=== PATIENT | female | born 1935 | race Caucasian/White ===

== ENCOUNTER 2021-05-29 08:05 | Inpatient (IN) | payer MEDICARE ==
[~2021-05-29] VITALS: Ht 154.9 cm; Wt 60.9 kg
[~2021-05-29 08:05] MED LIST: AMLO10TA80 MT; APIX5TAB PO; HYDR12.54 PO; LEVO500T89 MT; LOSA100T32 PO; METF-416 PO; METO-539 MT; SIMV-43 PO
[2021-05-29] MEDS ORDERED: ONDANSETRON HCL 4MG/2ML INJ IV STA (09:17)
[2021-05-29] MEDS ORDERED: KETOROLAC 30MG/ML VIAL IV STA (09:17)
[2021-05-29] MEDS ORDERED: SODIUM CHLORIDE 0.9% 1,000 ML IV ONE ×2 (09:30→11:15)
[2021-05-29 09:39] LABS: BASOPHILS % 0.3 % (0.0-2.0); HEMATOCRIT. 37.6 % (36.0-48.0); HEMOGLOBIN. 12.7 g/dL (12.0-16.0); LYMPHOCYTES % 13.7 % (20.0-50.0); MEAN CORPUSCULAR HEMOGLOBIN 28.8 pg (28.0-32.0); MEAN CORPUSCULAR VOLUME 85.2 fL (81.0-99.0); MEAN PLATELET VOLUME 9.5 fl (7.4-10.4); MONOCYTES % 10.7 % (2.0-8.0); NEUTROPHILS % 75.3 % (40.0-76.0); PLATELET 260 x1000/uL (130-400); RED BLOOD CELL COUNT 4.41 mill/uL (4.2-5.4); RED CELL DISTRIBUTION WIDTH 15.4 % (11.6-14.6)
[2021-05-29 09:50] LABS: CHLORIDE 95 mEq/L (98-107)
[2021-05-29 12:35] LABS: CLARITY URINE CLEAR (CLEAR); COLOR URINE YELLOW (YELLOW); KETONES URINE TRACE (NEGATIVE); LEUKOCYTE ESTERASE URINE 1+ (NEGATIVE); NITRITE URINE NEGATIVE (NEGATIVE); OCCULT BLOOD URINE 1+ (NEGATIVE); PH URINE 5.5 (4.5-8.0); PROTEIN URINE TRACE (NEGATIVE); SPECIFIC GRAVITY URINE 1.011 (1.005-1.030); UROBILINOGEN URINE 0.2 E.U./dL (0.2-1.0)
[2021-05-29] MEDS ORDERED: LEVOFLOXACIN 500MG PREMIX 100 ML IV SCH ×2 (13:00→13:15)
[2021-05-29] MEDS ORDERED: LORAZEPAM 2MG/ML CPJ IV PRN (13:00)
[2021-05-29] MEDS ORDERED: ONDANSETRON HCL 4MG/2ML INJ IV PRN (13:00)
[2021-05-29] MEDS ORDERED: GUAIFENESIN 200MG/10ML SUGAR FREE UDC PO PRN (13:00)
[2021-05-29] MEDS ORDERED: MORPHINE SULFATE 2 MG/ML CPJ (NOT FOR IM USE) IV PRN (13:00)
[2021-05-29] MEDS ORDERED: DIPHENHYDRAMINE 50MG/ML VIAL IV PRN (13:00)
[2021-05-29] MEDS ORDERED: ACETAMINOPHEN 650MG SUPP PR PRN (13:00)
[2021-05-29] MEDS ORDERED: DOCUSATE SODIUM 100MG CAPSULE PO PRN (13:00)
[2021-05-29] MEDS ORDERED: IPRATROPIUM/ALBUTEROL 0.5-3(2.5)MG/3ML NEB NEB PRN (13:00)
[2021-05-29] MEDS ORDERED: POTASSIUM CHLORIDE INJ 40 MEQ in DEXT 5% WATER 250 ML IV SCH (13:30)
[2021-05-29] MEDS: SODIUM CHLORIDE 0.9% 1,000 ML IV SCH (13:39)
[2021-05-29] MEDS: METRONIDAZOLE 500 MG PREMIX 100 ML IV SCH ×2 (14:40→23:18)
[2021-05-29] MEDS ORDERED: DEXTROSE 50% WATER 50ML SYRINGE IV PRN (15:30)
[2021-05-29] MEDS: BLOOD SUGAR DIAGNOSTIC STRIP TEST SCH ×2 (17:00→21:20)
[2021-05-29] MEDS ORDERED: IOHEXOL-300 100 ML BOTTLE ONE (17:32)
[2021-05-29 20:21] LABS: INR 1.1; PROTHROMBIN TIME 11.5 sec (9.6-11.0)
[2021-05-29 20:45] LABS: HEPATITIS B SURFACE ANTIGEN NEGATIVE
[2021-05-29] MEDS: ENOXAPARIN 60MG/0.6ML SYR SUBCUT SCH (20:50)
[2021-05-29] MEDS: INSULIN LISPRO 100 UNITS/ML SUBCUT SCH (21:00)
[2021-05-29] MEDS: PANTOPRAZOLE SODIUM 40 MG/VIAL IV SCH (23:18)
[2021-05-30 02:00] VITALS: BP 128/75
[2021-05-30] MEDS: SODIUM CHLORIDE 0.9% 1,000 ML IV SCH ×2 (02:40→14:37)
[2021-05-30] MEDS: METRONIDAZOLE 500 MG PREMIX 100 ML IV SCH ×3 (05:07→23:54)
[2021-05-30] MEDS: BLOOD SUGAR DIAGNOSTIC STRIP TEST SCH ×4 (06:34→20:24)
[2021-05-30] MEDS: INSULIN LISPRO 100 UNITS/ML SUBCUT SCH ×4 (06:34→20:24)
[2021-05-30 08:00] VITALS: BP 151/90
[2021-05-30 08:10] LABS: HEMATOCRIT. 37.5 % (36.0-48.0); HEMOGLOBIN. 12.5 g/dL (12.0-16.0); MEAN PLATELET VOLUME 9.3 fl (7.4-10.4); PLATELET 239 x1000/uL (130-400); RED CELL DISTRIBUTION WIDTH 15.8 % (11.6-14.6)
[2021-05-30 08:16] LABS: CHLORIDE 105 mEq/L (98-107)
[2021-05-30 08:25] LABS: LDL CHOLESTEROL 31 mg/dL (5-100)
[2021-05-30 08:26] LABS: TOTAL IRON BINDING CAPACITY 378 ug/dL (250-450)
[2021-05-30 08:27] LABS: HDL CHOLESTEROL 34 mg/dL (40-59)
[2021-05-30 08:29] LABS: T4 FREE 1.27 ng/dL (0.76-1.46)
[2021-05-30 08:37] LABS: FOLIC ACID (FOLATE) SERUM >20 ng/mL ng/mL (>5.38)
[2021-05-30 08:44] LABS: FERRITIN 46 ng/mL (10-291)
[2021-05-30 08:48] LABS: VITAMIN B12 SERUM 265 pg/mL (211-911)
[2021-05-30] MEDS: LEVOFLOXACIN 250MG PREMIX 50 ML IV SCH (11:13)
[2021-05-30 12:00] VITALS: BP 137/80
[2021-05-30] MEDS ORDERED: POTASSIUM CHLORIDE 20MEQ TABLET SR PO SCH (14:15)
[2021-05-30] MEDS: DILTIAZEM HCL 30MG TABLET PO SCH ×2 (14:36→21:55)
[2021-05-30] MEDS ORDERED: NALOXONE HCL 0.4MG/ML VIAL IV PRN (15:30)
[2021-05-30 16:00] VITALS: BP_SYST 125; BP_SYST 134; BP_DIAS 72
[2021-05-30] MEDS: ENOXAPARIN 60MG/0.6ML SYR SUBCUT SCH (16:20)
[2021-05-30 20:00] VITALS: BP 115/85
[2021-05-30] MEDS: PANTOPRAZOLE SODIUM 40 MG/VIAL IV SCH (20:24)
[2021-05-30] MEDS: ACETAMINOPHEN 325MG TABLET PO PRN (20:36)
[2021-05-30] MEDS: IRON SUCROSE COMPLEX 100 MG/5 ML ML IV SCH (21:55)
[2021-05-31] VITALS: BP 125/79
[2021-05-31 03:37] VITALS: BP 133/73
[2021-05-31] MEDS: SODIUM CHLORIDE 0.9% 1,000 ML IV SCH (04:17)
[2021-05-31] MEDS: METRONIDAZOLE 500 MG PREMIX 100 ML IV SCH (06:09)
[2021-05-31] MEDS: DILTIAZEM HCL 30MG TABLET PO SCH ×3 (06:09→21:44)
[2021-05-31 06:18] LABS: BASOPHILS % 0.3 % (0.0-2.0); HEMATOCRIT. 39.2 % (36.0-48.0); LYMPHOCYTES % 21.7 % (20.0-50.0); MEAN CORPUSCULAR HEMOGLOBIN 28.9 pg (28.0-32.0); MEAN CORPUSCULAR VOLUME 87.4 fL (81.0-99.0); MEAN PLATELET VOLUME 9.2 fl (7.4-10.4); MONOCYTES % 13.5 % (2.0-8.0); NEUTROPHILS % 64.5 % (40.0-76.0); PLATELET 221 x1000/uL (130-400); RED BLOOD CELL COUNT 4.49 mill/uL (4.2-5.4); RED CELL DISTRIBUTION WIDTH 15.7 % (11.6-14.6)
[2021-05-31] MEDS: ONDANSETRON HCL 4MG/2ML INJ IV PRN (06:18)
[2021-05-31 07:25] LABS: CHLORIDE 102 mEq/L (98-107)
[2021-05-31 08:00] VITALS: BP 127/72
[2021-05-31] MEDS: BLOOD SUGAR DIAGNOSTIC STRIP TEST SCH ×4 (08:03→20:38)
[2021-05-31] MEDS: INSULIN LISPRO 100 UNITS/ML SUBCUT SCH ×4 (08:13→20:31)
[2021-05-31 09:14] LABS: PLATELET ESTIMATE NORMAL
[2021-05-31] MEDS: LEVOFLOXACIN 250MG PREMIX 50 ML IV SCH (11:15)
[2021-05-31 12:00] VITALS: BP 141/81
[2021-05-31] MEDS: METRONIDAZOLE 500MG TABLET PO SCH ×2 (14:27→21:43)
[2021-05-31 16:00] VITALS: BP 123/69
[2021-05-31] MEDS: ENOXAPARIN 60MG/0.6ML SYR SUBCUT SCH (16:34)
[2021-05-31 20:00] VITALS: BP 171/75
[2021-05-31] MEDS: PANTOPRAZOLE SODIUM 40 MG/VIAL IV SCH (20:30)
[2021-05-31] MEDS: ACETAMINOPHEN 325MG TABLET PO PRN (20:30)
[2021-05-31] MEDS: IRON SUCROSE COMPLEX 100 MG/5 ML ML IV SCH (20:30)
[2021-06-01] VITALS (7 sets, daily range): BP systolic 110–144; BP diastolic 64–80
[2021-06-01] MEDS: METRONIDAZOLE 500MG TABLET PO SCH ×3 (06:01→21:02)
[2021-06-01] MEDS: DILTIAZEM HCL 30MG TABLET PO SCH ×3 (06:01→21:03)
[2021-06-01] MEDS: BLOOD SUGAR DIAGNOSTIC STRIP TEST SCH ×4 (07:51→21:00)
[2021-06-01] MEDS: INSULIN LISPRO 100 UNITS/ML SUBCUT SCH ×4 (07:52→21:00)
[2021-06-01] MEDS: LEVOFLOXACIN 250MG TABLET PO SCH (11:28)
[2021-06-01] MEDS: MAGNESIUM/ALUMINUM HYDROXIDE/SIMETHICONE 30ML UDC PO PRN (16:47)
[2021-06-01] MEDS: ENOXAPARIN 60MG/0.6ML SYR SUBCUT SCH (16:54)
[2021-06-01] MEDS: IRON SUCROSE COMPLEX 100 MG/5 ML ML IV SCH (21:02)
[2021-06-01] MEDS: PANTOPRAZOLE SODIUM 40 MG/VIAL IV SCH (21:02)
[2021-06-01] MEDS: ONDANSETRON HCL 4MG/2ML INJ IV PRN (21:12)
[2021-06-02 04:00] VITALS: BP 133/86
[2021-06-02] MEDS: DILTIAZEM HCL 30MG TABLET PO SCH ×3 (05:35→21:47)
[2021-06-02] MEDS: METRONIDAZOLE 500MG TABLET PO SCH ×3 (05:35→21:48)
[2021-06-02] MEDS: BLOOD SUGAR DIAGNOSTIC STRIP TEST SCH ×4 (05:39→21:35)
[2021-06-02] MEDS: INSULIN LISPRO 100 UNITS/ML SUBCUT SCH ×4 (05:39→21:49)
[2021-06-02 08:00] VITALS: BP 129/75
[2021-06-02 10:48] LABS: BG BASE EXCESS -1.8 mmol/L (-2.0-2.0); BG CARBOXYHEMOGLOBIN 0.1 % (0.5-1.5); BG DEOXYHEMOGLOBIN 5.8 % (0.0-5.0); BG FRACTION INSPIRED OXYGEN 21; BG HCO3 ACT 20.7 mmol/L (22.0-26.0); BG METHEMOGLOBIN 0.1 % (0.0-1.5); BG OXYGEN SATURATION 94.2 % (92.0-98.5); BG PCO2 29.3 mmHg (35.0-45.0); BG PH 7.468 (7.350-7.450); BG PO2 69.3 mmHg (75.0-100.0); BG SAMPLE SITE RIGHT BRACHIAL; BG TOTAL HEMOGLOBIN 13.1 g/dL (12.0-18.0); BG VENT MODE ROOM AIR
[2021-06-02] MEDS: LEVOFLOXACIN 250MG TABLET PO SCH (11:00)
[2021-06-02 12:00] VITALS: BP 133/78
[2021-06-02] MEDS ORDERED: LEVOFLOXACIN 250MG TABLET PO SCH (13:00)
[2021-06-02 13:07] LABS: BASOPHILS % 0.2 % (0.0-2.0); HEMATOCRIT. 41.1 % (36.0-48.0); HEMOGLOBIN. 13.5 g/dL (12.0-16.0); LYMPHOCYTES % 20.4 % (20.0-50.0); MEAN CORPUSCULAR HEMOGLOBIN 28.8 pg (28.0-32.0); MEAN CORPUSCULAR VOLUME 87.8 fL (81.0-99.0); MEAN PLATELET VOLUME 9.3 fl (7.4-10.4); MONOCYTES % 9.9 % (2.0-8.0); NEUTROPHILS % 69.5 % (40.0-76.0); PLATELET 209 x1000/uL (130-400); RED BLOOD CELL COUNT 4.69 mill/uL (4.2-5.4); RED CELL DISTRIBUTION WIDTH 15.6 % (11.6-14.6)
[2021-06-02 13:20] LABS: CHLORIDE 98 mEq/L (98-107)
[2021-06-02] MEDS ORDERED: DILTIAZEM HCL 30MG TABLET PO SCH (14:00)
[2021-06-02] MEDS ORDERED: DILT30TA38 MT (14:08)
[2021-06-02] MEDS ORDERED: SIMV-43 PO (14:08)
[2021-06-02] MEDS ORDERED: LEVO250T58 MT (14:08)
[2021-06-02] MEDS ORDERED: APIX5TAB PO (14:08)
[2021-06-02] MEDS ORDERED: METF-416 PO (14:08)
[2021-06-02] MEDS ORDERED: APIX5TAB MT (15:21)
[2021-06-02 16:00] VITALS: BP 143/84
[2021-06-02] MEDS: ENOXAPARIN 60MG/0.6ML SYR SUBCUT SCH (17:34)
[2021-06-02] MEDS: MAGNESIUM/ALUMINUM HYDROXIDE/SIMETHICONE 30ML UDC PO PRN (17:40)
[2021-06-02 20:00] VITALS: BP 139/73
[2021-06-02 21:49] LABS: BASOPHILS % 0.2 % (0.0-2.0); HEMATOCRIT. 37.9 % (36.0-48.0); HEMOGLOBIN. 12.7 g/dL (12.0-16.0); LYMPHOCYTES % 17.9 % (20.0-50.0); MEAN CORPUSCULAR HEMOGLOBIN 28.7 pg (28.0-32.0); MEAN CORPUSCULAR VOLUME 85.3 fL (81.0-99.0); MONOCYTES % 11.7 % (2.0-8.0); NEUTROPHILS % 70.2 % (40.0-76.0); PLATELET 205 x1000/uL (130-400); RED BLOOD CELL COUNT 4.44 mill/uL (4.2-5.4); RED CELL DISTRIBUTION WIDTH 15.5 % (11.6-14.6)
[2021-06-02 21:56] LABS: CHLORIDE 98 mEq/L (98-107)
[2021-06-02] MEDS: PANTOPRAZOLE SODIUM 40 MG/VIAL IV SCH (22:03)
[2021-06-03 00:11] VITALS: BP 120/74
[2021-06-03] MEDS: DILTIAZEM HCL 30MG TABLET PO SCH ×4 (03:00→21:12)
[2021-06-03 04:00] VITALS: BP 130/65
[2021-06-03] MEDS: METRONIDAZOLE 500MG TABLET PO SCH (06:50)
[2021-06-03] MEDS: BLOOD SUGAR DIAGNOSTIC STRIP TEST SCH ×4 (06:51→20:15)
[2021-06-03 08:00] VITALS: BP 117/81
[2021-06-03] MEDS: INSULIN LISPRO 100 UNITS/ML SUBCUT SCH ×4 (08:10→21:15)
[2021-06-03 09:09] LABS: SACCHAROMYCES CEREVISIAE IGG <20.0 Units (0.0-24.9); SACCHAROMYCES CEREVISIAE IGM <20.0 Units (0.0-24.9)
[2021-06-03] MEDS: ONDANSETRON HCL 4MG/2ML INJ IV PRN (09:56)
[2021-06-03 12:00] VITALS: BP 152/77
[2021-06-03 13:06] LABS: ATYPICAL pANCA <1:20 titer (Neg:<1:20)
[2021-06-03 16:00] VITALS: BP 128/78
[2021-06-03] MEDS: ENOXAPARIN 60MG/0.6ML SYR SUBCUT SCH (16:30)
[2021-06-03 20:00] VITALS: BP 121/61
[2021-06-03] MEDS: PANTOPRAZOLE SODIUM 40 MG/VIAL IV SCH (21:08)
[2021-06-03] MEDS: ACETAMINOPHEN 325MG TABLET PO PRN (21:12)
[2021-06-04 00:28] VITALS: BP 123/71
[2021-06-04] MEDS: DILTIAZEM HCL 30MG TABLET PO SCH ×3 (03:23→15:00)
[2021-06-04 04:00] VITALS: BP 149/69
[2021-06-04] MEDS: BLOOD SUGAR DIAGNOSTIC STRIP TEST SCH ×2 (07:40→12:40)
[2021-06-04 08:00] VITALS: BP 120/65
[2021-06-04] MEDS: INSULIN LISPRO 100 UNITS/ML SUBCUT SCH ×2 (08:10→12:51)
[2021-06-04] MEDS: ACETAMINOPHEN 325MG TABLET PO PRN (09:34)
[2021-06-04 12:00] VITALS: BP 110/61
[2021-06-04 13:21] LABS: BASOPHILS % 0.1 % (0.0-2.0); HEMOGLOBIN. 12.8 g/dL (12.0-16.0); LYMPHOCYTES % 12.9 % (20.0-50.0); MEAN CORPUSCULAR HEMOGLOBIN 29.2 pg (28.0-32.0); MEAN CORPUSCULAR VOLUME 86.6 fL (81.0-99.0); MEAN PLATELET VOLUME 9.2 fl (7.4-10.4); MONOCYTES % 9.5 % (2.0-8.0); NEUTROPHILS % 77.5 % (40.0-76.0); PLATELET 212 x1000/uL (130-400); RED BLOOD CELL COUNT 4.39 mill/uL (4.2-5.4); RED CELL DISTRIBUTION WIDTH 15.8 % (11.6-14.6)
[2021-06-04 13:30] LABS: CHLORIDE 97 mEq/L (98-107)
== END 2021-06-04 15:25 | disposition home health service (06) | DRG 871 ==
LOC: ER 08:27 → MICUSO 11:28 → SUPCPDRO 15:10 → 7EST 23:24 → 7WST 05-30 15:56
PROVIDERS: ADMIT Internal Medicine; ATTEND Internal Medicine
DX: A41.89 Other specified sepsis (principal); U07.1 COVID-19; E87.1 Hypo-osmolality and hyponatremia; N39.0 Urinary tract infection, site not specified; K76.0 Fatty (change of) liver, not elsewhere classified; N20.0 Calculus of kidney; D50.9 Iron deficiency anemia, unspecified; E11.65 Type 2 diabetes mellitus with hyperglycemia; K80.20 Calculus of gallbladder without cholecystitis without obstruction; E86.0 Dehydration; E87.6 Hypokalemia; E78.5 Hyperlipidemia, unspecified; K57.30 Diverticulosis of large intestine without perforation or abscess without bleeding; I48.91 Unspecified atrial fibrillation; I11.9 Hypertensive heart disease without heart failure; N28.1 Cyst of kidney, acquired; Z95.1 Presence of aortocoronary bypass graft; Z88.2 Allergy status to sulfonamides; Z79.899 Other long term (current) drug therapy; Z79.01 Long term (current) use of anticoagulants; K57.90 Diverticulosis of intestine, part unspecified, without perforation or abscess without bleeding
CPT/HCPCS: 36415; 36600; 71045; 74018; 74177; 76700; 80048; 80053; 80061; 81003; 82270; 82375; 82607; 82728; 82746; 82805; 82962; 83036; 83540; 83550; 83735; 84145; 84439; 84443; 85025; 85044; 85379; 86140; 86256; 86671; 86705; 86709; 86803; 87340; 93005; 99285; C9113; J1650; J1815; J1885; J1956; J2405; J3480; J3490; J7030; J7060; Q9967; U0003; U0005

== ENCOUNTER 2021-11-25 01:22 | Inpatient (IN) | payer MEDICARE, OTHER ==
[~2021-11-25] VITALS: Ht 162.6 cm; Wt 59.0 kg
[~2021-11-25 01:22] MED LIST changes: -AMLO10TA80 MT; +APIX5TAB MT; +DILT30TA38 MT; -HYDR12.54 PO; +LEVO250T58 MT; -LEVO500T89 MT; -LOSA100T32 PO; -METO-539 MT
[2021-11-25] MEDS ORDERED: ONDANSETRON HCL 4MG/2ML INJ IV STA (01:58)
[2021-11-25] MEDS ORDERED: SODIUM CHLORIDE 0.9% 1,000 ML IV ONE (02:00)
[2021-11-25 02:30] LABS: BASOPHILS % 0.2 % (0.0-2.0); EOSINOPHILS % 0.5 % (0.0-5.0); HEMATOCRIT. 39.1 % (36.0-48.0); HEMOGLOBIN. 12.8 g/dL (12.0-16.0); LYMPHOCYTES % 9.6 % (20.0-50.0); MEAN CORPUSCULAR HEMOGLOBIN 29.5 pg (28.0-32.0); MEAN PLATELET VOLUME 9.3 fl (7.4-10.4); MONOCYTES % 4.6 % (2.0-8.0); NEUTROPHILS % 85.1 % (40.0-76.0); PLATELET 221 x1000/uL (130-400); RED BLOOD CELL COUNT 4.34 mill/uL (4.2-5.4); RED CELL DISTRIBUTION WIDTH 17.6 % (11.6-14.6)
[2021-11-25 02:39] LABS: CHLORIDE 108 mEq/L (98-107)
[2021-11-25] MEDS ORDERED: DEXTROSE 50% WATER 50ML SYRINGE IV ONE (03:15)
[2021-11-25] MEDS ORDERED: ALBUTEROL (0.083%) 2.5MG/3ML NEB HHN ONE (03:15)
[2021-11-25] MEDS ORDERED: SODIUM POLYSTYRENE SULFONATE 15 G/60 ML BOT PO ONE (03:15)
[2021-11-25] MEDS ORDERED: INSULIN REGULAR (HUMULIN R) 300UNITS/3ML VIAL IV ONE (03:15)
[2021-11-25] MEDS ORDERED: MAGNESIUM/ALUMINUM HYDROXIDE/SIMETHICONE 30ML UDC PO PRN (08:45)
[2021-11-25] MEDS ORDERED: IPRATROPIUM/ALBUTEROL 0.5-3(2.5)MG/3ML NEB HHN PRN (08:45)
[2021-11-25] MEDS ORDERED: ONDANSETRON HCL 4MG/2ML INJ IV PRN (08:45)
[2021-11-25] MEDS ORDERED: DOCUSATE SODIUM 100MG CAPSULE PO PRN (08:45)
[2021-11-25] MEDS ORDERED: ACETAMINOPHEN 325MG TABLET PO PRN (08:45)
[2021-11-25] MEDS ORDERED: CLONIDINE 0.1MG TABLET PO PRN (08:45)
[2021-11-25] MEDS ORDERED: ENOXAPARIN 40MG/0.4ML SYR SUBCUT SCH (09:00)
[2021-11-25] MEDS: ASPIRIN 81MG EC TABLET PO SCH (09:00)
[2021-11-25] MEDS ORDERED: MECLIZINE 25MG TABLET PO PRN (12:15)
[2021-11-25] MEDS ORDERED: NALOXONE HCL 0.4MG/ML VIAL IV PRN (12:15)
[2021-11-25] MEDS ORDERED: DEXTROSE 50% WATER 50ML SYRINGE IV PRN (12:15)
[2021-11-25] MEDS ORDERED: DILTIAZEM HCL 30MG TABLET PO SCH (13:00)
[2021-11-25 13:02] LABS: BASOPHILS % 0.1 % (0.0-2.0); HEMATOCRIT. 33.3 % (36.0-48.0); HEMOGLOBIN. 10.9 g/dL (12.0-16.0); LYMPHOCYTES % 7.5 % (20.0-50.0); MEAN CORPUSCULAR HEMOGLOBIN 28.9 pg (28.0-32.0); MEAN CORPUSCULAR VOLUME 88.6 fL (81.0-99.0); MONOCYTES % 4.1 % (2.0-8.0); NEUTROPHILS % 88.3 % (40.0-76.0); PLATELET 221 x1000/uL (130-400); RED BLOOD CELL COUNT 3.76 mill/uL (4.2-5.4); RED CELL DISTRIBUTION WIDTH 17.1 % (11.6-14.6)
[2021-11-25 13:27] LABS: CHLORIDE 108 mEq/L (98-107)
[2021-11-25 14:12] LABS: CLARITY URINE CLEAR (CLEAR); COLOR URINE YELLOW (YELLOW); KETONES URINE TRACE (NEGATIVE); LEUKOCYTE ESTERASE URINE 2+ (NEGATIVE); NITRITE URINE POSITIVE (NEGATIVE); OCCULT BLOOD URINE NEGATIVE (NEGATIVE); PROTEIN URINE TRACE (NEGATIVE); SPECIFIC GRAVITY URINE 1.019 (1.005-1.030)
[2021-11-25 14:22] LABS: *AMPHETAMINES SCREEN URINE NEGATIVE (NEGATIVE); *BARBITURATES SCREEN URINE NEGATIVE (NEGATIVE); *BENZODIAZEPINES SCREEN URINE NEGATIVE (NEGATIVE); *COCAINE SCREEN URINE NEGATIVE (NEGATIVE)
[2021-11-25 14:23] LABS: METHADONE URINE SCREEN NEGATIVE (NEGATIVE); OPIATES URINE SCREEN NEGATIVE (NEGATIVE)
[2021-11-25 14:24] LABS: CANNABINOID URINE SCREEN NEGATIVE (NEGATIVE); PHENCYCLIDINE URINE SCREEN NEGATIVE (NEGATIVE)
[2021-11-25] MEDS: BLOOD SUGAR DIAGNOSTIC STRIP TEST SCH ×3 (14:40→21:00)
[2021-11-25] MEDS: SODIUM CHLORIDE 0.45% 1,000 ML IV SCH (14:53)
[2021-11-25] MEDS: HYDROCODONE/ACETAMINOPHEN 5/325MG TABLET PO PRN (14:57)
[2021-11-25] MEDS: INSULIN LISPRO 100 UNITS/ML SUBCUT SCH ×3 (15:44→21:00)
[2021-11-25 16:57] LABS: CREATINE KINASE 22 IU/L (26-192)
[2021-11-25 16:58] LABS: CREATINE KINASE MB FRACTION 1.8 ng/mL (0.5-3.6)
[2021-11-25] MEDS: DILTIAZEM HCL 30MG TABLET PO SCH ×2 (19:03→23:42)
[2021-11-25] MEDS: ENOXAPARIN 60MG/0.6ML SYR SUBCUT SCH (19:13)
[2021-11-25] MEDS ORDERED: IOHEXOL-350 100 ML BOTTLE ONE (21:05)
[2021-11-25 21:30] VITALS: BP 132/78
[2021-11-25] MEDS: ATORVASTATIN CALCIUM 40MG TABLET PO SCH (23:42)
[2021-11-26] VITALS: BP 113/68
[2021-11-26 00:01] LABS: CREATINE KINASE MB FRACTION 1.8 ng/mL (0.5-3.6)
[2021-11-26] MEDS: SODIUM CHLORIDE 0.45% 1,000 ML IV SCH (02:35)
[2021-11-26 04:00] VITALS: BP 122/75
[2021-11-26] MEDS: ENOXAPARIN 60MG/0.6ML SYR SUBCUT SCH ×2 (06:02→17:48)
[2021-11-26] MEDS: DILTIAZEM HCL 30MG TABLET PO SCH ×4 (06:02→23:23)
[2021-11-26] MEDS: BLOOD SUGAR DIAGNOSTIC STRIP TEST SCH ×4 (07:20→21:13)
[2021-11-26] MEDS: INSULIN LISPRO 100 UNITS/ML SUBCUT SCH ×4 (07:50→21:00)
[2021-11-26 08:10] VITALS: BP 124/79
[2021-11-26] MEDS: ASPIRIN 81MG EC TABLET PO SCH (08:56)
[2021-11-26 09:19] LABS: INR 1.2; PROTHROMBIN TIME 12.4 sec (9.6-11.0)
[2021-11-26 09:34] LABS: BASOPHILS % 0.3 % (0.0-2.0); CHLORIDE 104 mEq/L (98-107); EOSINOPHILS % 0.6 % (0.0-5.0); HEMATOCRIT. 38.3 % (36.0-48.0); HEMOGLOBIN. 12.2 g/dL (12.0-16.0); LYMPHOCYTES % 12.4 % (20.0-50.0); MEAN CORPUSCULAR HEMOGLOBIN 28.7 pg (28.0-32.0); MEAN CORPUSCULAR VOLUME 89.9 fL (81.0-99.0); MONOCYTES % 6.8 % (2.0-8.0); NEUTROPHILS % 79.9 % (40.0-76.0); PLATELET 233 x1000/uL (130-400); RED BLOOD CELL COUNT 4.25 mill/uL (4.2-5.4); RED CELL DISTRIBUTION WIDTH 17.5 % (11.6-14.6)
[2021-11-26 09:48] LABS: LDL CHOLESTEROL 37 mg/dL (5-100)
[2021-11-26 09:49] LABS: HDL CHOLESTEROL 27 mg/dL (40-59)
[2021-11-26] MEDS ORDERED: DILT30TA38 PO (11:24)
[2021-11-26] MEDS ORDERED: ASPI-1406 PO (11:24)
[2021-11-26] MEDS ORDERED: GLIP5TAB12 MT (11:24)
[2021-11-26 12:00] VITALS: BP 116/79
[2021-11-26 16:00] VITALS: BP 128/77
[2021-11-26] MEDS: ATORVASTATIN CALCIUM 40MG TABLET PO SCH (19:42)
[2021-11-26] MEDS: HYDROCODONE/ACETAMINOPHEN 5/325MG TABLET PO PRN (19:43)
[2021-11-26 20:00] VITALS: BP 119/76
[2021-11-27] VITALS: BP 123/70
[2021-11-27 04:00] VITALS: BP 132/82
[2021-11-27] MEDS: ENOXAPARIN 60MG/0.6ML SYR SUBCUT SCH (06:05)
[2021-11-27] MEDS: DILTIAZEM HCL 30MG TABLET PO SCH ×2 (06:05→12:02)
[2021-11-27] MEDS: BLOOD SUGAR DIAGNOSTIC STRIP TEST SCH ×2 (06:52→12:02)
[2021-11-27] MEDS: INSULIN LISPRO 100 UNITS/ML SUBCUT SCH ×2 (06:52→12:03)
[2021-11-27 08:14] VITALS: BP 126/70
[2021-11-27] MEDS: ASPIRIN 81MG EC TABLET PO SCH (08:18)
[2021-11-27 11:57] VITALS: BP_SYST 117; BP_SYST 123; BP_SYST 132; BP_DIAS 75; BP_DIAS 79; BP_DIAS 84
[2021-11-27 12:30] VITALS: BP 123/75
== END 2021-11-27 15:51 | disposition home or self-care (01) | DRG 65 ==
LOC: ER 01:22 → MICUSO 05:46 → 6WST 20:22
PROVIDERS: ADMIT Internal Medicine; ATTEND Internal Medicine
DX: I63.549 Cerebral infarction due to unspecified occlusion or stenosis of unspecified cerebellar artery (principal); I48.20 Chronic atrial fibrillation, unspecified; I50.22 Chronic systolic (congestive) heart failure; I67.82 Cerebral ischemia; I25.10 Atherosclerotic heart disease of native coronary artery without angina pectoris; E87.5 Hyperkalemia; E87.6 Hypokalemia; E78.5 Hyperlipidemia, unspecified; E11.65 Type 2 diabetes mellitus with hyperglycemia; Z20.822 Contact with and (suspected) exposure to COVID-19; K57.30 Diverticulosis of large intestine without perforation or abscess without bleeding; K76.0 Fatty (change of) liver, not elsewhere classified; I11.0 Hypertensive heart disease with heart failure; I25.2 Old myocardial infarction; Z79.4 Long term (current) use of insulin; Z79.84 Long term (current) use of oral hypoglycemic drugs; Z79.01 Long term (current) use of anticoagulants; Z86.16 Personal history of COVID-19; Z87.440 Personal history of urinary (tract) infections; Z87.891 Personal history of nicotine dependence; Z95.1 Presence of aortocoronary bypass graft; Z88.2 Allergy status to sulfonamides; Z79.899 Other long term (current) drug therapy
CPT/HCPCS: 36415; 70496; 70498; 70551; 80048; 80053; 80061; 80305; 81003; 82550; 82553; 82962; 83036; 84443; 84484; 85025; 87426; 93005; 93306; 93880; 93970; 94640; 97162; 97535; 99285; J1650; J1815; J2405; J7030; Q9967

== ENCOUNTER 2023-01-20 15:28 | Emergency (ER) | payer MEDICARE, OTHER ==
[~2023-01-20] VITALS: Ht 165.1 cm; Wt 64.0 kg
[~2023-01-20 15:28] MED LIST changes: -APIX5TAB MT; +ASPI-1406 PO; +DILT30TA37 PO; -DILT30TA38 MT; +GLIP5TAB12 MT; -LEVO250T58 MT; +LOSA100T32 MT
[2023-01-20 16:49] LABS: BASOPHILS % 0.3 % (0.0-2.0); HEMATOCRIT. 39.2 % (36.0-48.0); HEMOGLOBIN. 11.8 g/dL (12.0-16.0); LYMPHOCYTES % 7.3 % (20.0-50.0); MEAN CORPUSCULAR HEMOGLOBIN 28.1 pg (28.0-32.0); MEAN CORPUSCULAR VOLUME 93.3 fL (81.0-99.0); MEAN PLATELET VOLUME 9.3 fl (7.4-10.4); MONOCYTES % 7.2 % (2.0-8.0); NEUTROPHILS % 85.2 % (40.0-76.0); PLATELET 303 x1000/uL (130-400); RED BLOOD CELL COUNT 4.21 mill/uL (4.2-5.4); RED CELL DISTRIBUTION WIDTH 18.7 % (11.6-14.6)
[2023-01-20 16:53] LABS: CHLORIDE 103 mEq/L (98-107)
[2023-01-20 17:03] LABS: INR 1.3; PROTHROMBIN TIME 14.2 sec (9.6-11.0)
[2023-01-20] MEDS ORDERED: FUROSEMIDE 40MG/4ML VIAL IVP ONE (17:15)
[2023-01-20] MEDS ORDERED: FUROSEMIDE 40MG/4ML VIAL IVP NR (17:15)
[2023-01-20] MEDS ORDERED: ACETAMINOPHEN 325MG TABLET PO ONE (21:15)
[2023-01-21 03:14] VITALS: BP 129/80
[2023-01-21] MEDS ORDERED: ACETAMINOPHEN 325MG TABLET PO ONE (03:15)
== END 2023-01-21 03:47 | disposition short-term general hospital (02) ==
LOC: ER 16:13
DX: I11.0 Hypertensive heart disease with heart failure (principal); I50.9 Heart failure, unspecified; E11.9 Type 2 diabetes mellitus without complications; Z20.822 Contact with and (suspected) exposure to COVID-19; Z79.82 Long term (current) use of aspirin
CPT/HCPCS: 36415; 71045; 80053; 83880; 84484; 85025; 85610; 87426; 93005; 96374; 99285; C9803; J1940; 99283